=== PATIENT | female | born 1960 | race Caucasian/White ===

== ENCOUNTER 2016-12-18 08:26 | Observation (INO) | payer BC ==
[~2016-12-18] VITALS: Ht 172.7 cm; Wt 91.0 kg
--- NOTE | ~2016-12-18 | HP ---
History And Physical [facility] [id number] [place]. [address] NAME: MARY GRACE MARIE : 56 STATUS : ADM Jelani PAT#: [id number] AGE: 56 ADM/REG DATE : 12/18/16 MR#: [id number] REPORT SERV DATE: 12/18/16 DICTATED BY: GUADALUPE FLOREZ DATE: 12/18/16 REPORT STATUS : Draft TRANSCRIBED BY: MODBrayden DATE: 12/18/16 DATE OF ADMISSION: 12/18/2016 CHIEF COMPLAINT: Chest pain. HISTORY OF PRESENT ILLNESS: A very pleasant 56-year-old white female with no known history of CAD, but with risk factors of dyslipidemia and family history. 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 She reports a considerably stressful week. Her significant other lost his brother, the was tonight. She also had a son, who lost his job and had to move in with them for several weeks, and they have also been undergoing some degree of a renovation. She also reports recently lifting rocks out of the backyard for an upcoming patio renovation. She states she was up all night with episodic chest discomfort indicating her center chest. She reported that radiated to her jaw and her shoulders. She reports associated shortness of breath, nausea. Denies diaphoresis, dizziness, or belching. She describes the chest pain as a pressure "grabbing sensation." At its most intense, she rates it a 7/10. At the time of interview in the ER, she states that she is pain free. Although, she states it comes back in waves at times. The pain is not reproducible on exam. She did take Claritin and Prilosec at 0630 hours this morning with no improvement in her symptoms. The patient denies any personal history of myocardial infarction, stroke, DVT, or pulmonary embolus. The patient denies any recent fever or chills, no palpitations, no syncopal events. Denies PND or orthopnea. Of note, the patient flew to [place], [place] to be with her mother, who was out around a trip and found to have a pulmonary embolus and required bypass surgery while on a trip. The patient states she returned on 10/31/2016 after a month out at [place]. PAST MEDICAL HISTORY: 1. Dyslipidemia. 2. GERD. 3. Increased stress. 4. Positive family history for early CAD. PAST SURGICAL HISTORY: 1. Uterine ablation. 2. Two C-sections. 3. Cholecystectomy. 4. Cervical disk surgery. 5. Left rotator cuff repair. 6. Tonsillectomy. SOCIAL HISTORY: She is with two sons. She has a desk job. She does not exercise. Denies tobacco or illicits. Rarely consumes alcohol. FAMILY HISTORY: Father of a heart attack at 45. Mother with CAD and bypass during a History And Physical [address] [id number] NAME: MARY GRACE MARIE : 56 STATUS : ADM Jelani PAT#: [id number] AGE: 56 ADM/REG DATE : 12/18/16 MR#: [id number] REPORT SERV DATE: 12/18/16 DICTATED BY: GUADALUPE FLOREZ DATE: 12/18/16 REPORT STATUS : Draft TRANSCRIBED BY: TATUM DATE: 12/18/16 trip to [place] at the age of 73. Also found to have a PE during that trip. REVIEW OF SYSTEMS: A 14-point review of systems performed, significant for HPI including snores per report with no formal sleep study. Otherwise, complete review of systems was obtained and negative. ALLERGIES: NO KNOWN DRUG ALLERGIES. HOME MEDICATIONS: Atorvastatin 40 mg nightly, loratadine 10 mg daily p.r.n., Prilosec 20 mg daily p.r.n., Excedrin migraine 2 capsules daily p.r.n., Artificial Tears p.r.n., and multivitamin daily. PHYSICAL EXAMINATION: BLOOD PRESSURE: 141/84, PULSE: 90, RESPIRATORY RATE: 16, TEMPERATURE: 97.2, O2 saturation 97% on room air. HEIGHT: 5 feet 8 inches. WEIGHT: 205 pounds (stated). GENERAL: Cooperative, in no apparent distress. HEENT: Pupils 2 mm, sclera nonicteric. Nares patent. Moist mucous membranes. No xanthelasma. NECK: Trachea midline, no thyromegaly. No JVD. No bruits. LYMPH: No cervical lymphadenopathy. No supraclavicular lymphadenopathy. RESPIRATORY: Unlabored respirations. Breath sounds clear bilaterally to posterior auscultation. No wheezes or rhonchi. CARDIOVASCULAR: Regular rate. No murmur, rub or gallop appreciated. EXTREMITIES: Without edema. Pulses 2+ bilaterally. ABDOMEN: Soft, nontender, nondistended, normal bowel sounds auscultated throughout. No organomegaly. SKIN: Warm, dry extremities. No pallor, or cyanosis. PSYCHIATRIC: Appropriate affect. Alert, oriented x3. LABORATORY DATA: Troponin less than 0.02, second pending. Potassium 4.0, BUN 10, creatinine 0.68, glucose 123, and magnesium 2.2. WBC 6.8, hemoglobin 14.1, hematocrit 42.3, and platelet count 214,000. D-dimer, pending. EKG: Sinus rhythm. ASSESSMENT AND PLAN: 1. Chest pain with typical and atypical features. Await D-dimer and second troponin. If all negative, consider n.p.o. for MPI today. The patient would be discharged home if negative study. I have provided full dose aspirin now. If anything suggestive of ischemia, Cardiology referral will be initiated. Otherwise, the patient will be asked to follow up with her PCP in one to two weeks with all studies being sent to that office. 2. Dyslipidemia. Continue statin. 3. Recent strenuous activity. The chest pain is not reproducible on exam. 4. Gastroesophageal reflux disease. Continue PPI or H2 avis per hospital formulary. 5. Increased stress both at work and with family. Counseled regarding management of same and consideration of a low-level walking program. History And Physical [address] [id number] NAME: MARY GRACE MARIE : 56 STATUS : ADM Jelani PAT#: [id number] AGE: 56 ADM/REG DATE : 12/18/16 MR#: [id number] REPORT SERV DATE: 12/18/16 DICTATED BY: GUADALUPE FLOREZ DATE: 12/18/16 REPORT STATUS : Draft TRANSCRIBED BY: TATUM DATE: 12/18/16 ROSALIE/TATUM Guadalupe Florez, [employer], [employer] / [id number] CC: ALEK [place], [employer] Odalis Mcgee M.D.
[~2016-12-18 08:26] MED LIST: CALTRA600D PO; CENTRUM TAB1 TAB PO; LORTAB10 PO; MOBIC7.5 PO; MULTIVITAMI1 PO; NORCO1 TAB PO; PRAVACHOL40 MG PO; VITC500 PO
[2016-12-18 08:59] LABS: BASOPHILS 0.1 %; BASOPHILS ABSOLUTE 0.01 10/3/uL (0.0-0.16); EOSINOPHILS 0.3 %; EOSINOPHILS ABSOLUTE 0.02 10/3/uL (0.0-0.53); ER CBC TAT 0 Hrs 03 Mins; HEMATOCRIT 42.3 % (36.0-48.0); HEMOGLOBIN 14.1 g/dL (12.0-16.0); IMMATURE GRANULOCYTES 0.3 %; IMMATURE GRANULOCYTES ABSOLUTE 0.02 10/3/uL (0.0-0.11); LYMPHOCYTES 16.4 %; LYMPHOCYTES ABSOLUTE 1.11 10/3/uL (0.67-4.30); MEAN CORPUS HGB CONC 33.3 g/dL (32.0-36.0); MEAN CORPUSCULAR HEMOGLOB 30.1 pg (26.0-34.0); MEAN CORPUSCULAR VOLUME 90.4 fL (80-100); MEAN PLATELET VOLUME 9.5 fL (9.2-13.0); MONOCYTES 5.5 %; MONOCYTES ABSOLUTE 0.37 10/3/uL (0.21-1.20); NEUTROPHILS 77.4 %; NEUTROPHILS ABSOLUTE 5.25 10/3/uL (2.02-8.40); PLATELET COUNT 214 10/3/uL (150-400); RBC DISTRIBUTION WIDTH 14.4 % (12.0-16.0); RED CELL COUNT 4.68 10/6/uL (4.0-5.6); WHITE BLOOD CELLS 6.8 10/3/uL (4.5-10.5)
[2016-12-18 09:00] LABS: MANUAL DIFF NO %
[2016-12-18 09:07] LABS: PARTIAL THROMBO TIME 29.4 SEC (22.5-37.2); PROTIME (NOT ORD) 13.3 SEC (12.0-14.5)
[2016-12-18 09:16] LABS: BUN (BLOOD UREA NITROGEN) 10 MG/DL (6-23); CALCIUM, SERUM 9.3 MG/DL (8.5-10.4); CHEST PAIN PROFILE TAT 0 Hrs 20 Mins; CHLORIDE, SERUM 107 MMOL/L (96-112); CO2 (CARBON DIOXIDE) 27 MMOL/L (24-34); CREATININE 0.68 MG/DL (0.55-1.02); GFR AFRICAN AMERICAN 112 ML/MIN (>=60); GFR NON AFRICAN AMERICAN 96 ML/MIN (>=60); SODIUM, SERUM 140 MMOL/L (135-148); TROPONIN I <0.02 NG/ML (<0.05)
[2016-12-18 09:17] LABS: GLUCOSE, SERUM 123 MG/DL (60-99)
[2016-12-18] MEDS ORDERED: CLARIT10 PO (10:20)
[2016-12-18] MEDS ORDERED: LIPITOR40 PO (10:20)
[2016-12-18] MEDS ORDERED: EXCEDRIN MIGRA1 EAC1 PO (10:21)
[2016-12-18] MEDS ORDERED: PRILOSEC OTC20 MG PO (10:21)
[2016-12-18] MEDS ORDERED: MULTIVIT/MIN PO (10:22)
[2016-12-18] MEDS ORDERED: REFRESH OPH (10:22)
== END 2016-12-18 16:37 | disposition home or self-care (01) ==
LOC: ER 08:26 → CDU1 10:23 → CDU2 11:15
PROVIDERS: Emergency Medicine
DX: R07.89 Other chest pain (principal); I25.10 Atherosclerotic heart disease of native coronary artery without angina pectoris; E78.5 Hyperlipidemia, unspecified; K21.9 Gastro-esophageal reflux disease without esophagitis; F43.9 Reaction to severe stress, unspecified; Z82.49 Family history of ischemic heart disease and other diseases of the circulatory system; Z90.49 Acquired absence of other specified parts of digestive tract; Z90.89 Acquired absence of other organs; Z98.890 Other specified postprocedural states; Z79.899 Other long term (current) drug therapy
CPT/HCPCS: 71010; 78452; 80048; 83735; 84484; 85025; 85379; 85610; 85730; 93005; 93017; 99285; A9502; G0378